=== PATIENT | male | born 1990 | race Caucasian/White ===

== ENCOUNTER 2017-08-17 06:27 | Emergency (ER) | payer OTHER ==
[2017-08-17] MEDS: METOCLOPRAMIDE 10 MG INJ IV (07:17)
[2017-08-17] MEDS: KETOROLAC 30 MG INJ IV (07:17)
[2017-08-17] MEDS: DIPHENHYDRAMINE 50 MG INJ IV (07:17)
[2017-08-17] MEDS: ONDANSETRON 4 MG INJ IV (08:35)
[2017-08-17] MEDS: SOD CHLORIDE 0.9% 1,000 ML IV (08:36)
[2017-08-17] MEDS: morphine 4 MG/ML VIAL IV (08:36)
== END 2017-08-17 09:30 | disposition home or self-care (01) ==
LOC: FTE 06:27
DX: R51 Headache (principal); Z79.82 Long term (current) use of aspirin
CPT/HCPCS: 70450; 96361; 96374; 96375; 99285-25